=== PATIENT | female | born 1945 | race Caucasian/White ===

== ENCOUNTER 2023-02-05 09:15 | Outpatient (RCR) | payer MEDICARE, SELFPAY | END 2023-04-25 16:37 | disposition home or self-care (01) | PROVIDERS: PCP Family Medicine; Visit Provider Orthopaedic Surgery | DX: M17.12 Unilateral primary osteoarthritis, left knee (principal); Z96.651 Presence of right artificial knee joint; Z51.89 Encounter for other specified aftercare | CPT/HCPCS: 97110; 97116; 97162 ==

== ENCOUNTER 2023-11-26 11:15 | Outpatient (RCR) | payer MEDICARE, SELFPAY | END 2023-11-27 09:52 | disposition home or self-care (01) | PROVIDERS: PCP Family Medicine; Visit Provider Physical Medicine & Rehabilitation | DX: M70.61 Trochanteric bursitis, right hip (principal); M25.651 Stiffness of right hip, not elsewhere classified; R29.3 Abnormal posture; M25.551 Pain in right hip; Z51.89 Encounter for other specified aftercare | CPT/HCPCS: 97110; 97112; 97140; 97161 ==

== ENCOUNTER 2025-03-16 13:27 | Emergency (ER) | payer MEDICARE, SELFPAY ==
--- OUTSIDE RECORDS SUMMARY | 2025-03-16 13:29 | XMS_ITS | Clinical Summary ---
Author Organization [facility] Address [address] [place] [address] Care Team Providers Care Clinical Nursing Assistant Name Role Phone Pallavi Wyman MD Primary Care Provider [phone] Allergies Active Allergy Reactions Criticality Noted Date Comments Lisinopril Cough 08/29/2022 Statins 05/01/2007 Muscle pain Metoprolol GI Disturbance 08/29/2022 Microscopic colitis Sulfa Antibiotics Itching 08/29/2022 Sulfasalazine Itching 12/17/2018 Medications CLARITIN 10 MG OR TABS Take 10 mg by mouth daily as needed 3 MONTHS 1 YEAR 09/15/2007 Active MULTIVITAMIN TABS OR Take 1 tablet by mouth daily Stopped 11/19/22 before surgery 12/10/2007 Active acetaminophen (TYLENOL) 500 MG tablet Take 500-1,000 mg by mouth every 6 hours as needed for mild pain Active melatonin 3 MG tablet Take 3 mg by mouth nightly as needed for sleep Active Cranberry 500 MG TABS Take 1 tablet by mouth daily Stopped 08/28/22 before surgery Active fluticasone (FLONASE) 50 MCG/ACT nasal spray [place] 1 spray into both nostrils daily as needed Active tolterodine ER (DETROL LA) 4 MG 24 hr capsule Take 4 mg by mouth daily Active levothyroxine (SYNTHROID/LEVO THROID) 75 MCG tablet Take 75 mcg by mouth daily Active methotrexate 2.5 MG tablet Take 20 mg by mouth once a week 8 tablets weekly Stopped 11/11/22 before surgery and hold for 2 weeks after surgery. Active folic acid (FOLVITE) 1 MG tablet Take 1 mg by mouth daily Active hydroxychloroqu ine (PLAQUENIL) 200 MG tablet Take 200 mg by mouth daily Active hydrochlorothia zide (HYDRODIURIL) 12.5 MG tablet Take 12.5 mg by mouth daily Active atenolol (TENORMIN) 100 MG tablet Take 100 mg by mouth daily Active losartan (COZAAR) 50 MG tablet Take 75 mg by mouth daily Active potassium chloride ER (KLOR-CON M) 10 MEQ CR tablet Take 10 mEq by mouth daily Active aspirin (ASA) 81 MG EC tabletIndicatio ns:TIA (transient ischemic attack) Take 1 tablet (81 mg) by mouth daily 30 tablet 09/13/2022 Active Active Problems Problem Noted Date Diagnosed Date Sinus tachycardia 09/12/2022 Stroke 09/11/2022 Female stress incontinence 11/21/2007 Overview (11/21/2007): Detrol working well. Diverticulitis of colon 10/22/2005 Overview (05/12/2015): Problem list name updated by automated process. Provider to review Hyperlipidemia 10/22/2005 Overview (05/12/2015): Problem list name updated by automated process. Provider to review Allergic rhinitis 10/22/2005 Overview (05/12/2015): Problem list name updated by automated process. Provider to review Chronic rhinitis 08/28/2005 Headache 08/28/2005 Overview (05/12/2015): Problem list name updated by automated process. Provider to review Essential hypertension Overview (05/12/2015): Problem list name updated by automated process. Provider to review Hypothyroidism Overview (05/12/2015): Problem list name updated by automated process. Provider to review History of colonic polyps Overview (05/12/2015): Problem list name updated by automated process. Provider to review Immunizations Immunization Administration Dates Next Due COVID-19 MONOVALENT 12+ (Pfizer) 11/22/2020,10/11 Influenza (IIV3) PF 06/16/2007,06/28/2003 Influenza Vaccine 65+ (FLUAD) 05/08/2022, 020 Pneumo Conj 13-V (2010&after) 12/30/2014 Pneumococcal 23 valent 12/12/2009 TDAP Vaccine (Adacel) 11/21/2007 Zoster recombinant adjuvanted (Shingrix) 019,05/06/2019 Family History Medical History Relation Comments Alcohol/Drug Brother 1 Allergies Brother 1 Hypertension Brother 1 Hypertension Brother 2 Allergies Daughter C.A.D. Father BYPASS/HEART ATT ACK Diabetes Father Lipids Father Arthritis Mother Breast Cancer Mother Cancer Mother STOMACH Cardiovascular Mother Gastrointestinal Disease Mother GALLBLA DDER Gynecology Mother C.A.D. Paternal Grandfather HEART FAILU RE Cerebrovascular Disease Paternal Grandmother Allergies Sister 1 Cerebrovascular Disease Sister 1 Diabetes Sister 1 Gynecology Sister 1 Hypertension Sister 1 Anesthesia Reaction Sister 2 Breast Cancer Sister 2 Gynecology Sister 2 C.A.D. Sister 4 HEART ATTACK Cardiovascular Sister 4 Gynecology Sister 4 Hypertension Sister 4 Allergies Sister 5 Respiratory Sister 5 Allergies Son Respiratory Son Relation Status Comments Brother 1 Alive Brother 2 Alive Brother 3 Alive Brother 4 Brother 5 Alive Brother 6 Brother 7 Alive Daughter Alive Father Maternal Grandfather Maternal Grandmother Mother Paternal Grandfather Paternal Grandmother Sister 1 Alive Sister 2 Alive Sister 3 Alive Sister 4 Alive Sister 5 Alive Son Alive Social History Tobacco Use Types Packs/Day Years Used Date Smoking Tobacco: Never Smokeless Tobacco: Never Alcohol Use Standard Drinks/Week Comments Yes 0 (1 standard drink = 0.6 oz pur e alcohol) Alcoholic Drinks/day: rarely PHQ-2 Answer Date Recorded PHQ-2 Score 0 11/06/2022 Adolescent Education Answer Date Record ed Getting School Help Needed Not on file 05/26 Comments No Sex and Gender Information Value Date Recorded Sex Assigned at Female 11/03/2020 11:18 PM CDT Legal Sex Female 3:06 AM RETAIL PLANNER Gender Identity Female 11/03/2020 11:18 PM CDT Sexual Orientation Straight 11/03/2020 11 :18 PM CDT Last Filed Vital Signs Vital Sign Reading Time Taken Comments Blood Pressure 160/84 09/12/2022 4:44 PM RETAIL PLANNER Pulse 104 09/12/2022 12:00 PM RETAIL PLANNER Temperature 36.7 C (98 F) 09/12/2022 12:00 PM RETAIL PLANNER Respiratory Rate 18 09/12/2022 12:00 PM RETAIL PLANNER Oxygen Saturation 96% 09/12/2022 12:00 PM RETAIL PLANNER Inhaled Oxygen Concentration - - Weight 53.7 kg (118 lb 6.4 oz) 09/12/2022 2:40 A M RETAIL PLANNER Height 154.9 cm (5' 1) 09/11/2022 2:00 PM RETAIL PLANNER Body Mass Index 22.37 09/11/2022 2:00 PM RETAIL PLANNER Plan of Treatment Health Maintenance Due Date Last Done Comments ANNUAL REVIEW OF HM ORDERS 1945 FALL RISK ASSESSMENT 2009 RSV VACCINE (1 - 1-dose 75+ series) 2019 DEXA 10/27/2019 10/26/2004 MEDICARE ANNUAL WELLNESS VISIT 03/22/2023 03/22/2022, 03/02/2021, 11/21/2007, Additional history exists LIPID 09/11/2023 09/11/2022, 04/0 08/2007, 07/22/2007, Additional history exists TSH W/FREE T4 REFLEX 09/11/2023 09/11/2022, 01/09/2008, 11/11/2007, Additional history exists BMP 09/12/2023 09/12/2022, 08/14, 09/11/2022, Additional history exists COVID-19 VACCINE ( season) 2024 07/12/2022, 12/13/2021, 06/02/2021, Additional history exists PHQ-2 (once per calendar year) 2024 11/06/2022 INFLUENZA VACCINE (#1) 2025 , 06/02/2021, 05/05/2020, Additional history exists DIABETES SCREENING 09/12/2025 09/12/2022, 0 09/12/2022, 09/11/2022, Additional history exists ADVANCE CARE PLANNING 09/18/2027 09/18/2022 DTAP/TDAP/TD VACCINE (6 - Td or Tdap) 02/06/2028 02/05/2018, 02/05/2018, 11/21/2007, Additional history exists COLONOSCOPY Discontinued 12/10/2007, 11/10, 07/27/2002 COLORECTAL CANCER SCREENING Discontinued PNEUMOCOCCAL VACCINE 50+ YEARS Completed 12/30/2014, 12/12/2009 ZOSTER VACCINE Completed 07/15/2019, 05/06/2019 MAMMO SCREENING Discontinued 10/12/2022, 08/13, 06/17/2007, Additional history exists CT COLONOGRAPHY Discontinued FIT Discontinued FLEX SIG Discontinued HPV VACCINE (No Doses Required) Completed MENINGITIS VACCINE Aged Out No longer eligible based on patient's age to complete this topic sDNA (Cologuard) Discontinued Medical Devices Implanted Type Area Diesel Pile Hammer Operator Device Identifier Shelf Expiration Date Model / Serial / Lot Bone Cement Radiopaque Simplex P Speedset 6192-1-001 Implanted:Qty : 1 on 10/11/2020 Cement, Bone Left: Knee [employer] 12/09/2020 6192-1-001 / / [id number] Attune Fb Tib Base Sz 4 Adair Implanted:Qty : 1 on 10/11/2020 Total Joint Componen t/Insert Left: Knee [employer] 07/11/2030 1506-70-004 / / [id number] Imp Insert Jj Attune Cr Fx Br Sys Sz5 5mm [id number] Implanted:Qty : 1 on 10/11/2020 Total Joint Componen t/Insert Left: Knee [employer] [id number] 07/11/2025 [id number] / / [id number] Imp Comp Fem Jj Attune Cr Lt Nrw [employer]air Sz5 [id number] Implanted:Qty : 1 on 10/11/2020 Total Joint Componen t/Insert Left: Knee [employer] [id number] 06/11/2030 [id number] / / [id number] Imp Patella Jj Attune Dome 38mm [id number] Implanted:Qty : 1 on 10/11/2020 Total Joint Componen t/Insert Left: Knee [employer] [id number] 07/11/2025 [id number] / / [id number] Procedures Procedure Name Priority Date/Time Associated Diagnosis Comments GLUCOSE BY METER Routine 09/12/2022 12:0 8 PM RETAIL PLANNER BASIC METABOLIC PANEL Routine 09/12/2022 5:06 AM RETAIL PLANNER TSH STAT Add-on 09/11/2022 1:10 PM RETAIL PLANNER LIPID PROFILE STAT Add-on 09/11/2022 1:10 PM RETAIL PLANNER COLONOSCOPY Routine 12/10/2007 8:40 AM CDT HC MAMMOGRAM, SCREENING BILATERAL Routine 06/17/2007 12:16 PM RETAIL PLANNER C DEXA, BONE DENSITY, AXIAL SKEL Routine 10/26/2004 1:25 PM RETAIL PLANNER from Last 3 Months or Most Recently Relevant to Health Maintenance Results * (ABNORMAL) Glucose by meter (09/12/2022 12:08 PM RETAIL PLANNER) GLUCOSE BY METER POCT 121(H) 70 - 99 mg/dL 09/12/2022 12:16 PM RETAIL PLANNER [facility] POCT RESULTS Blood, Capillary BLOOD SPECIMEN / Unknown 09/12/2022 12:08 PM RETAIL PLANNER 09/12/2022 12:16 PM RETAIL PLANNER us Messi Ayon MD [facility] POCT Final Resul t [facility] POCT RESULTS [address] [place] [address] * Basic metabolic panel (09/12/2022 5:06 AM RETAIL PLANNER) Sodium 136 136 - 145 mmol/L 09/12/2022 5:40 AM [facility] Potassium 3.8 3.5 - 5.0 mmol/L 09/12/2022 5:40 AM [facility] Chloride 99 98 - 107 mmol/L 09/12/2022 5:40 AM [facility] Carbon Dioxide (CO2) 27 22 - 31 mmol/L 09/12/2022 5:40 AM [facility] Anion Gap 10 5 - 18 mmol/L 09/12/2022 5:40 AM [facility] Urea Nitrogen 9 8 - 28 mg/dL 09/12/2022 5:40 AM [facility] Creatinine 0.63 0.60 - 1.10 mg/dL 09/12/2022 5:40 AM [facility] Calcium 9.6 8.5 - 10.5 mg/dL 09/12/2022 5:40 AM [facility] Glucose 85 70 - 125 mg/dL 09/12/2022 5:40 AM [facility] GFR Estimate 90 >60 mL/min/1.7 3m2 09/12/2022 5:40 AM [facility] Comment:eGFR calculated usla g 2020 CKD-EPI equation. Blood BLOOD SPECIMEN / Unknown Venipuncture / Unknown 09/12/2022 5:06 AM RETAIL PLANNER 09/12/2022 5:19 AM RETAIL PLANNER Messi Ayon MD LAB - BLOOD ORDERABLES Final Result [facility] [address] [place], [place] [address] [address], [facility] [phone] * TSH (09/11/2022 1:10 PM RETAIL PLANNER) Pathologist [facility] TSH 2.27 0.30 - 5.00 uIU/mL 09/11/2022 2:33 PM [facility] Blood STRUCTURE OF RIGHT UPPER LIMB / Unknown Venipuncture / Unknown 09/11/2022 1:10 PM RETAIL PLANNER 09/11/2022 1:18 PM RETAIL PLANNER Messi Ayon MD LAB - BLOOD ORDERABLES Final Result [facility] [place] [address], [facility] [phone] * (ABNORMAL) Lipid panel reflex to direct LDL: Non-fasting (09/11/2022 1:10 PM RETAIL PLANNER) Cholesterol 163 <=199 mg/dL 09/11/2022 2:22 PM RETAIL PLANNER [facility] Triglycerides 102 <=149 mg/dL 09/11/2022 2:22 PM [facility] Direct Measure HDL 44(L) >=50 mg/dL 2022 2:22 PM [facility] Comment: HDL Cholesterol Reference Range: 0-2 years: No reference ranges established for patients under 2 years old at [facility] for lipid analytes. 2-8 years: Greater than 45 mg/dL 18 years and older: Female: Greater than or equal to 50 mg/dL Male: Greater than or equal to 40 mg/dL LDL Cholesterol Calculated 99 <=129 mg/dL 09/11/2022 2:22 PM [facility] Blood STRUCTURE OF RIGHT UPPER LIMB / Unknown Venipuncture / Unknown 09/11/2022 1:10 PM RETAIL PLANNER 09/11/2022 1:18 PM [facility] us Messi Ayon MD LAB - BLOOD ORDERABLES Final Result [facility] [address] [place] [address], [facility] [phone] * COLONOSCOPY (12/10/2007 8:40 AM CDT) COLONOSCOPY Patient Name: Julianna Boothe Gender: F Procedure Date: 12/10/2007 8:40 AM Date of : 1945 Age: 62 Admit Type: Outpatient Attending MD: Jeremy Cotto MD Procedure: Colonoscopy Indications: Personal history of colonic polyps Providers: Jeremy Cotto MD, Flor Andrews RN Referring MD: Ryland Kaur MD Medicines: Atropine IV 0.4 mgs, Fentanyl IV 100 mcgs, Versed IV 4 mgs Complications: No immediate complications Procedure: - Prior to the procedure, a History and Physical was performed, and patient medication allergies were reviewed. The patient is competent. The risks and benefits of the procedure and the sedation options and risks were discussed with the patient. All questions were answered and informed consent was obtained. Patient identification and proposed procedure were verified by the physician in the pre-procedure area. Mental Status Examination: alert and oriented. Airway Examination: normal oropharyngeal airway and neck mobility. Respiratory Examination: clear to auscultation. CV Examination: normal. ASA Grade Assessment: I - A normal, healthy patient. After reviewing the risks and benefits, the patient was deemed in satisfactory condition to undergo the procedure. The anesthesia plan was to use minimal sedation / analgesia (anxiolysis). Immediately prior to administration of medications, the patient was re-assessed for adequacy to receive sedatives. The heart rate, respiratory rate, oxygen saturations, blood pressure, adequacy of pulmonary ventilation, and response to care were monitored throughout the procedure. The physical status of the patient was re-assessed after the procedure. After obtaining informed consent, the colonoscope was passed under direct vision. Throughout the procedure, the patient's blood pressure, pulse, and oxygen saturations were monitored continuously. The Colonoscope was introduced through the anus and advanced to the ileocecal valve. The colonoscopy was performed without difficulty. The patient tolerated the procedure well. The quality of the prep was good. The prep was adequate to identify polyps. Findings: Multiple small and large-mouthed diverticula were found in the sigmoid colon. The exam was otherwise without abnormality. Impression: - Diverticulosis sigmoid colon. - The examination was otherwise normal. Recommendation: - Repeat colonoscopy in 5 years for surveillance. - Return to primary care physician PRN. Signed electronically by Jeremy Cotto M.D. Jeremy Cotto MD Signed Date: 12/10/2007 9:00 AM Number of Addenda: 0 Note initiated on 12/10/2007 8:40 AM RADIOLOGY RESULTS COLONOSCOPY RADIOLOG Y RESULTS 12/10/2007 8:40 AM CDT Ryland Kaur MD PROCEDURES Final Result RADIOLOGY RESULTS * MAMMOGRAM, SCREENING (06/17/2007 12:16 PM RETAIL PLANNER) Anatomical Region Laterality Modality Other 06/17/2007 12:1 6 PM RETAIL PLANNER Impressions 06/19/2007 9:24 AM RETAIL PLANNER EXAM: BILATERAL SCREENING MAMMOGRAPHY HISTORY/COMPARISON: routine, prev at [facility], 01/03/05, a/v 01/16/05, 06-14-06. BREAST PARENCHYMA: Heterogeneously dense. FINDINGS: Negative. . IMPRESSION: Category 1. Negative. An ACR letter will be sent to this patient with regards to these results. Ryland Kaur MD SPECIAL IMAGING STUDIE S Edited * DEXA, BONE DENSITY, AXIAL SKEL (10/26/2004 1:25 PM RETAIL PLANNER) Radiology Result BONE MINERAL DENSITY DETERMINATION: INDICATION: Postmenopausal. TECHNIQUE: The study was performed using DEXA in the AP lumbar spine and AP femoral neck. A summation report is made for L1 through 4 in the spine, and separate reports are made for the left and right hips. NEW EQUIPMENT FOR THIS EXAMINATION IS NOW IN USE, AND FULLY RELIABLE COMPARISONS CANNOT BE MADE TO PREVIOUS BONE DENSITY DETERMINATIONS MADE BEFORE JANUARY 04, 2004. RADIOGRAPHIC CORRELATION: Prior bone densitometry study from [facility]. It is dated March 14, 2000. FINDINGS: Using DEXA, the results are reported according to T score. The T score is the standard deviation from the peak bone mass in a normal young patient. A T score of 0 to -1.0 is normal. A T score of -1.0 to -2.5 correlates with osteopenia. T score of less the -2.5 correlates with osteoporosis according to World Health Organization standards. The T-score of the lumbar spine on today's study in the region of L2-L4 is 0 which correlates with normal bone mineral density. The patient had a T-score in the normal bone mineral density range on the prior study at 0.6. The T-score of the left femur on today's study is -0.1 which correlates with normal bone mineral density. The patient had a T-score in the normal bone mineral density range on the prior study at 1.3. RADIOLOGY RESULTS Anatomical Region Laterality Modality Other 10/26/2004 1:25 PM RETAIL PLANNER Ryland Kaur MD SPECIAL IMAGING STUDIE S Final Result from Last 3 Months or Most Recently Relevant to Health Maintenance Insurance [employer] MEDICARE ADVANTAGE Advance Directives For more information, please contact: [phone] Documents on File Type Date Recorded Patient Story Editor Expl anation Advance Directives and Living Will 09/18/2022 Health Care Directiv e 12/05/2011 * Full Code (Latest Code Status on File) Date Activated Date Inactivated Comments 09/11/2022 1:49 PM 09/12/2022 7:57 PM All basic and advanced life-sustaining interventions are performed as appropriate Question Answer Comments Code status determined by: Discussion with patie nt/ legal decision maker Healthcare Agents on File Name Relationship Healthcare Agent [facility] Communication Musa Boothe Son Co-Primary Health Care Ageivan rhodes Kenisha Brown Daughter Co-Primary Health Care Agent Care Teams Clinical Nursing Assistant Relationship Specialty Start Date End Date Pallavi Wyman MD PCP - General Family Medicine 10/07/20
--- OUTSIDE RECORDS SUMMARY | 2025-03-16 13:29 | XMS_ITS | Encounter Summary ---
Author Organization [facility] Address [address] [place] [address] Care Team Providers Care Photoresist Contact Printer Name Role Phone Ryland Kaur MD Primary Care Provider Pallavi Wyman MD Primary Care Provider [phone] Pallavi Wyman MD Primary Care Provider [phone] An Villafuerte TOOL MARKER INDUSTRIAL PROPERTY APPRAISER Unavailable An Villafuerte TOOL MARKER INDUSTRIAL PROPERTY APPRAISER Unavailable [phone] An Villafuerte TOOL MARKER INDUSTRIAL PROPERTY APPRAISER Unavailable [phone] An Villafuerte TOOL MARKER INDUSTRIAL PROPERTY APPRAISER Unavailable [phone] Encounter Details Date Type Department Care Team (Late st Contact Info) Description 12/09/2006 MyC Medical Advice [facility] Ryland Kaur MD XXX NO LONGERS SEEING PTS XXX [address] [place], [place] [id number] Social History Tobacco Use Types Packs/Day Years Used Date Smoking Tobacco: Never Alcohol Use Standard Drinks/Week Comments Yes 0 (1 standard drink = 0.6 oz pur e alcohol) occ Comments No Sex and Gender Information Value Date Recorded Sex Assigned at Female 11/03/2020 11:18 PM CDT Legal Sex Female 3:06 AM TECHNICAL MAINTENANCE SPECIALIST Gender Identity Female 11/03/2020 11:18 PM CDT Sexual Orientation Straight 11/03/2020 11 :18 PM CDT documented as of this encounter Miscellaneous Notes * Telephone Encounter - Pooja Bacon - 12/09/2006 9:[address] Kaur, please see MyChart note. Pooja Bacon RNC documented in this encounter Plan of Treatment Not on file documented as of this encounter Visit Diagnoses Not on filedocumented in this encounter Care Teams Photoresist Contact Printer Relationship Specialty Start Date End Date Ryland Kaur MD XXX NO LONGERS SEEING PTS XXX [address] [place] [address] PCP - General 05/05/04 10/04/20 Pallavi Wyman MD XXX NO LONGERS SEEING PTS XXX [address] [place] [address] PCP - General Family Medicine 10/07/20 Pallavi Wyman MD XXX NO LONGERS SEEING PTS XXX [address] [place] [address] PCP - General 10/05/20 10/06/20 An Villafuerte APRN INDUSTRIAL PROPERTY APPRAISER [facility] [address] [place] [address] Assigned Surgical Provider 04/27/23 08/23/23 An Villafuerte APRN INDUSTRIAL PROPERTY [facility] [address] [place] [address] Assigned Neuroscience Provider 08/24/23 10/24/23 An Villafuerte APRN INDUSTRIAL PROPERTY [facility] [address] [place] [address] Assigned Surgical Provider 10/25/23 12/02/23 An Villafuerte APRN INDUSTRIAL PROPERTY [facility] [address] [place] [address] Assigned Behavioral Health Provider 12/03/23 06/02/24 documented as of this encounter
--- OUTSIDE RECORDS SUMMARY | 2025-03-16 13:29 | XMS_ITS | Clinical Summary ---
Author Organization [employer] [facility] Address [address] [place] [id number] Care Team Providers Care Propellant Assembler Name Role Phone Ju Cohen Andres Unavailable [phone] Annemarie Ward MD Unavailable [phone] Venice Ch MD Primary Care Provi keron Emily Hernandez RN Unavailable [phone] Spencer Bolden MD Unavailable [phone] Allergies Active Allergy Reactions Criticality Noted Date Comments Lisinopril Cough 04/21/2020 Metoprolol GI Upset 10/08/2017 Microscopic colitis Sulfasalazine Itching 12/17/2018 Medications acetaminophen (TYLENOL EXTRA STRGTH) 500 mg tablet Take 1 tablet by mouth every 6 hours if needed. Max acetaminophen dose: 4000mg in 24 hrs. 0 10/09/19 14 Active multivitamin (MVI) tablet Take 1 tablet by mouth once daily. 0 12/24/19 14 Active Cranberry 500 mg cap Take 1 capsule by mouth once daily. 0 03/07/20 16 Active loratadine (CLARITIN) 10 mg tablet Take 10 mg by mouth once daily. As needed 0 09/06/19 17 Active fluticasone (50 mcg per actuation) nasal solution (FLONASE) Uses as needed Activ e aspirin (ECOTRIN) 81 mg enteric coated tablet Take 81 mg by mouth. 09/13/19 23 Active losartan (COZAAR) 100 mg tabletIndicatio ns:Hypertension Take 1 Tablet (100 mg) by mouth once daily. 90 Tablet 3 05/19/20 24 Active levothyroxine (SYNTHROID) 75 mcg tabletIndicatio ns:Hypothyroidi sm, unspecified type Take 1 Tablet (75 mcg) by mouth once daily. BEST IF TAKEN ON AN EMPTY STOMACH 90 Tablet 3 06/01/20 24 Active potassium chloride (K-TAB) 10 mEq extended-releas e tabletIndicatio ns:Low serum potassium TAKE 1 TABLET (10 MEQ) BY MOUTH ONCE DAILY WITH A MEAL. 90 Tablet 2 08/17/19 25 Active folic acid 1 mg tabletIndicatio ns:Seropositive rheumatoid arthritis (HC) Take 1 Tablet (1 mg) by mouth once daily. 90 Tablet 3 08/13/19 25 Active hydroxychloroqu ine 300 mg tabletIndicatio ns:Rheumatoid arthritis of multiple sites with negative rheumatoid factor (HC) Take 1 Tablet (300 mg) by mouth once daily. 90 Tablet 1 11/24/19 25 Active tolterodine 4 mg Extended-Releas e capsuleIndicati ons:Urinary urgency Take 1 Capsule (4 mg) by mouth once daily. 90 Capsule 1 12/21/19 25 Active atenoloL 100 mg tabletIndicatio ns:Hypertension TAKE 1 TABLET BY MOUTH EVERY DAY 90 Tablet 2 01/06/20 25 Active amLODIPine 5 mg tabletIndicatio ns:Hypertension TAKE 1 TABLET BY MOUTH EVERY DAY 90 Tablet 2 01/06/20 25 Active methotrexate 2.5 mg tabletIndicatio ns:Seropositive rheumatoid arthritis (HC) TAKE 9 TABLETS BY MOUTH ONE TIME PER WEEK 144 Tablet 02/11/20 25 Active losartan (COZAAR) 50 mg tabletIndicatio ns:Hypertension Take 1.5 Tablets (75 mg) by mouth once daily. 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 Provider to review History of TIA (transient ischemic attack) 09/1111/16/2022 Overview (2023): 09.11.2022 at [place]. On Aspirin. Primary osteoarthritis of right knee 05/23/2022 Overview (05/31/2022): May 2022: Right knee Aspirated 30 ml of blood-tinged joint effusion and injected with cortisone. 70% improvement. Osteopenia of multiple sites 03/22/2021 Overview (03/22/2021): DEXA 2020 osteopenia with increased FRAX score - recommend she consider medication Trigger finger, left middle finger 03/23/2020 Overview (01/03/2021): Mar 2020: left middle trigger finger injected. Very good pain/triggering improvement until October 2020. December 2020: Repeat cortisone injection to left middle trigger finger. Rheumatoid arthritis involvi ng multiple sites with positive rheumatoid factor 01/05/2016 Atrophic vaginitis 12/23/2013 Microscopic colitis 06/29/2013 Overview (06/29/2013): Colonoscopy 06/2013 lymphocytic colitis, no follow up needed Sensorineural hearing loss, bilateral 11/18/2012 Hypertension 12/11/2010 Unspecified hypothyroidism 12/11/2010 Mixed hyperlipidemia 12/11/2010 Female stress incontinence 11/21/200711/16 Overview (11/16/2022): Detrol working well. Allergic rhinitis 10/22/2005 11/16/2022 Overview (11/16/2022): Problem list name updated by automated process. Provider to review Resolved Problems Problem Noted Date Diagnosed Date Resolved Date Unspecified tinnitus 11/18/2012 023 Encounters Date Type Department Care Team Description 02/10/2025 Refill [facility] [address] [address] Spencer Bolden MD Refill Request (Methotrexate) 02/05/2025 10:30 AM CDT Office Visit [facility] [address] [place] [address] David Henderson, AuD Hearing Aid 02/05/2025 Travel 01/31/2025 Travel 01/22/2025 9:30 AM CDT Office Visit [facility] [address] [place] [address] David Henderson, AuD Hearing Aid (Fitting) 01/22/2025 Travel 01/17/2025 Travel 01/14/2025 10:00 AM CDT Office Visit [facility] [address] [place] [address] David Henderson, AuD Hearing Aid 01/13/2025 Travel 01/11/2025 Telephone [facility] [address] [place] [address] David Henderson, AuD 01/09/2025 Travel 01/04/[address] [phone] Venice Ch MD Refill Request (Amlodipine) 01/02/[address] [phone] Venice Ch MD Refill Request (Atenolol) 12/18/[address] [phone] Venice Ch MD Refill Request (Tolterodine tart ER 4 mg) 12/17/2024 3:00 PM CDT Office Visit [address] [phone] Ubaldo Trujillo, KAYLEE Ear Problem (Patient states she feels like both ears are muffled/plugged. Seen previously by audiology, found deep ear wax in left ear. Patient has tried ear drops and at home ear flush, didn't help much.) 12/17/2024 Travel 12/14/2024 11:00 AM CDT Office Visit [facility] [address] [address] Spencer Bolden MD Follow Up 12/14/2024 Travel from Last 3 Months Immunizations Immunization Administration Dates Next Due AMB INFLUENZA IIV3 (AGE 65+ YRS) PF (Flu Clinic Only) 05/22/2019,06/24/2018,05/15/2017 AMB Influenza, IIV3 (Age >=3 years)(Flu Clinic Only) 2011,06/01/2010 Amb Influenza, Inact (High-d ose) (Flu Clinic Only) 04/27/2016,06/09/2015 COVID-19 VACCINE COMIRNATY (PFIZER-BIONTECH 30MCG/0.3ML) 12YO+ PFS 05/07/2024 COVID-19 VACCINE SPIKEVAX (M ODERNA 50MCG/0.5ML) 12YO+ PFS 05/06/2023 COVID-19 vaccine (Moderna 100mcg/0.5mL) PF, MDV 12/13/2021,06/02/2021 COVID-19 vaccine ([employer]Bio NTech 30mcg/0.3mL) 12YO+ BIVALENT PF, MDV 07/12/2022 COVID-19 vaccine ([employer] NTech 30mcg/0.3mL) PF, MDV 07/12/2022,11/22/2020,11/01/2020 Influenza Virus, Unspecified 05/06/2023, 04/27/2016,06/09/2015,07/06 Influenza, High-dose Inactivated 020,05/22/2019,06/24/2018,05/15,04/27/2016,06/09/2015,05/19/2014 Influenza, High-dose Quadriv alent Inactivated 06/02/2021 Influenza, IIV3 (Age 6-35 mos) 2011 Influenza, IIV3 (Age >=3 years) 07/06/20 13,06/23/2012,06/01/2010,07/06 Influenza, Inactivated AIIV4 (Age 65+ Years) Preserv Free 05/06/2023,05/08/2022,05/05/2020 Influenza, Inactivated IIV3 (Age 65+ Years) Preserv Free 05/07/2024,05/15/2017 Pneumococcal Poly,23-Valent (Pneumovax) 12/12/2009 Pneumococcal conj 13-Valent (Prevnar 13) 12/30/2014 RSV, Recombinant ADJ Reconst ituted (Arexvy 120MCG/0.5mL) 07/15/2023 TD, UNSPECIFIED 02/05/2018,11/21/2007,12/27/1997 Td (Age >=7 Years) 02/05/2018,11/21/2007, 998 Tdap 11/21/2007 Zoster (Shingrix-RZV, recombinant) 07/15/2019, Family History Medical History Relation Name Comments Other Father Gout Arthritis Mother Cancer-breast Mother Diagnosed 50 Other Other no known family hx of anesthesia rxn, bleeding disorders, or blood clots Arthritis Sister 1 Jenna RA Cancer-breast Sister 1 Jenna Diagnosed 56 Arthritis Sister 2 Margaux Cancer-breast Sister 2 Margaux diag 2021 Cancer-breast Sister 3 Emily diag 2019 Heart Disease Sister 3 Emily Cancer-ovarian No Family History Relation Name Status Comments Father Mother Other Sister 1 Jenna Alive Sister 2 Margaux Alive Sister 3 Emily Alive Social History Tobacco Use Types Packs/Day Years Used Date Smoking Tobacco: Never Passive Smoke Exposure: Never Smokeless Tobacco: Never Tobacco Cessation:Counseling Given: Not Answered Alcohol Use Standard Drinks/Week Comments Yes 0 (1 standard drink = 0.6 oz pur e alcohol) 3-4 per year PHQ-2 Answer Date Recorded PHQ-2 TOTAL SCORE 0 05/19/2024 Social Connections Answer Date Recorded Do you often feel lonely or isolated from those around you? 0 12/04/2024 Financial Resource Strain Answer Date R ecorded Difficulty of Paying Living Expenses 3 12/04/2024 Difficulty of Paying Living Expenses Not on file 12/04/2024 Food Insecurity Answer Date Recorded Do you worry your food will run out before you are able to buy more? 1 12/04/2024 Transportation Needs Answer Date Record ed Does lack of transportation keep you from medica l appointments? 1 12/04/2024 Does lack of transportation keep you from work, meetings or getting things that you need? 1 12/04/2024 Housing Stability Answer Date Recorded What is your housing situation today? 1 12/04/2024 Utilities Answer Date Recorded Do you have trouble paying f or utilities (for example, heat, electricity, water, phone)? 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 Not on file Not on file Not on f ile Obstetrics History Para Term AB IAB SAB Ectopic Multiple Livin g Live Births 4 2 2 Date Outcome GA Total Labor Labor/2nd/3rd Weight Sex Type Anes PTL Lynn A1 A5 Name Clin Term Term Last Filed Vital Signs Vital Sign Reading Time Taken Comments Blood Pressure 118/62 12/17/2024 3:06 PM CDT Pulse 80 12/17/2024 3:06 PM CDT Temperature 36.7 C (98 F) 05/31/2020 8:52 AM CDT Respiratory Rate 16 10/15/2023 10:31 AM 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 Oxygen Saturation 98% 12/17/2024 3:06 PM CDT Inhaled Oxygen Concentration - - Weight 55.9 kg (123 lb 4.8 oz) 12/17/2024 3:06 P M CDT Height 154.3 cm (5' 0.75) 12/14/2024 10:59 AM C DT Body Mass Index 23.49 12/14/2024 10:59 AM CDT Plan of Treatment Upcoming Encounters Date Type Department Care Team (Late st Contact Info) Description 04/06/2025 9:00 AM CDT Orders Only [facility] [address] [place] [address] [place], [place] 04/20/2025 10:30 AM CDT Office Visit [facility] [address] [address] [place] [address] [place], [place] [id number] Health Maintenance Due Date Last Done Comments COVID-19 vaccine series (8 - Mixed Product risk season) 2024 05/07/2024, 05/06/2023, 07/12/2022, Additional history exists Influenza Vaccine (#1) 2025 , 05/06/2023, 05/06/2023, Additional history exists Medicare Wellness for age 65+ 05/20/2025 05/19/2024, 03/26/2023, 03/22/2022, Additional history exists Depression screening for age 12+ 05/21/2025 05/21/2024, 05/19/2024, 03/26/2023, Additional history exists BMI (ht and wt on same day) for age 18+ 12/14/2025 12/14/2024, 09/21/2024, 08/13/2024, Additional history exists Tetanus booster 02/06/2028 02/05/2018, 01/11, 11/21/2007, Additional history exists Pneumococcal series for age 50+ Completed 12/30/2014, 12/12/2009 Zoster (shingles) series for age 50+ Completed 07/15/2019, 05/06/2019 DEXA/DXA scan for age 65+ Completed 03/15/2021, 01/2010 RSV vaccine for adults or Completed 07/15/2023 Hepatitis B series for 19+ Aged Out N o longer eligible based on patient's age to complete this topic Procedures Procedure Name Priority Date/Time Associated Diagnosis Comments XR DXA BONE DENSITY 2 SITES AXIAL Routine 03/15/2021 8:48 AM CDT Menopause from Last 3 Months or Most Recently Relevant to Health Maintenance Results * (ABNORMAL) XR DXA BONE DENSITY 2 SITES AXIAL (03/15/2021 8:48 AM CDT) Anatomical Region Laterality Modality Spine, HIPS, HIPL, HIPR Other Impressions 03/21/2021 1:52 PM CDT Osteopenia. RECOMMENDATIONS: The National Osteoporosis Foundation recommends pharmacologic treatment for patients with T-scores of -2.5 or less, patients with prior history of fragility fractures, or patients with 10-year probability of greater than 3% at hips or greater than 20% of suffering major osteoporotic fractures. Recommend continued optimization of calcium and vitamin D intake through dietary means and/or supplementation and regular exercise. Consider pharmacologic therapy for osteopenia with increased fracture risk. Follow-up bone density reading in 2 years if therapy initiated to assess therapeutic efficacy. Lynette Darby PA-C [facility] 03/21/2021 Narrative 03/21/2021 1:52 PM CDT XR DXA Bone Mineral Density (BMD) EXAM LOCATION: [address] [address] PATIENT NAME: Julianna Boothe DATE OF : 1945 EXAM DATE: 03/15/2021 REQUESTING PROVIDER: Pallavi Wyman MD GENDER AT : female HEIGHT: 5' 1.1 (03/02/2021) WEIGHT: 123 lb 6.4 oz (03/02/2021) MENOPAUSAL STATUS: Postmenopausal RACE/ETHNICITY: White RISK FACTORS: Weight < 127 lbs. and White Race CURRENT MEDICATION FOR BONE LOSS: NONE INDICATION: Screening for osteoporosis COMPARISON DATE(S): 2009 DXA scans are compared to prior studies for a patient only when the two (or more) studies were performed on the same scanner. It is not possible to compare data generated on one scanner to data from another because there are not standards in DXA equipment. This applies even if the two scanners are made by the same bottom polisher. PROCEDURE: Dual-energy x-ray absorptiometry performed with routine technique. Reporting is completed in the form of a T-score. The T-score represents the standard deviation from peak bone mass based on young healthy adult. A Z-score is used for diagnosis in premenopausal women, and for men under the age of 50. FINDINGS: RESULT LUMBAR SPINE L1 - L2 BMD: 1.034 g/cm2 T-Score: - 1.2 Z-Score: + 0.9 Comparison to most recent scan in 2009: Decrease 8.6%. RESULT FEMORAL NECK Left Total Femoral Neck BMD: 0.861 g/cm2 T-Score: - 1.3 Z-Score: + 0.9 RESULT TOTAL HIP Bilateral Total Hip BMD: 0.807 g/cm2 T-Score: - 1.6 Z-Score: + 0.5 Comparison to most recent scan in 2009: Decrease 17.1%. WHO criteria: Normal: T-score at or above -1 SD Osteopenia: T-score between -1.1 and -2.4 SD Osteoporosis: T-score at or below -2.5 SD FRAX RISK CALCULATION (USED FOR OSTEOPENIA ONLY): 10-year probability of major osteoporotic fracture: 13.9%. 10-year probability of hip fracture: 3.0%. 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
--- OUTSIDE RECORDS SUMMARY | 2025-03-16 13:29 | XMS_ITS | Clinical Summary ---
Author Organization [facility] Address [address] [place] [address] Care Team Providers Care Durable Medical Equipment Technician Name Role Phone None Reported, Pcp Primary Care Provider Unavail able Source Comments Patient records contain information from all sites at [facility]. For routine questions regarding patient records, call [phone] during business hours, M-F 8:00 AM - 5:00 PM Central Time. Record requests for emergency care only can be directed to [phone] at any time.[facility] Allergies Active Allergy Reactions Criticality Noted Date Comments Lisinopril Cough 04/21/2020 Metoprolol GI intolerance 10/08/2017 Microscopic colitis Nsaids (Non-Steroidal Anti-Inflammatory Drug) Other (see comments) 01/01/2023 Hx microscopic colitis Sulfa (Sulfonamide Antibiotics) Itching 08/29/2022 Sulfasalazine Itching 12/17/2018 Medications acetaminophen (TYLENOL) 500 mg tablet Take 500 mg by mouth. 4 Active cranberry 500 mg capsule Take 500 mg by mouth. 6 Active fluticasone propionate (FLONASE) 50 mcg/actuation nasal spray Active folic acid 1 mg tablet Take 1 mg by mouth. 9 Active levothyroxine (SYNTHROID, LEVOTHROID) 75 mcg tablet Take 75 mcg by mouth. 9 Active lisinopril-hydr oCHLOROthiazide (PRINZIDE,ZESTO RETIC) 10-12.5 mg per tablet Take 1 tablet by mouth. 0 Active melatonin 3 mg tablet Take 3 mg by mouth. 4 Active methotrexate 2.5 mg tablet TAKE 8 TABLETS BY MOUTH ONCE A WEEK 9 Active multivitamin tablet Take 1 tablet by mouth. 4 Active tolterodine (DETROL LA) 4 mg 24 hr capsule Take 4 mg by mouth. 9 Active atenoloL (TENORMIN) 100 mg tablet Take 100 mg by mouth daily. 3 Active potassium chloride (KLORCON/K-TAB) 10 mEq ER tablet Take 10 mEq by mouth daily with breakfast. 3 Active losartan-hydroC HLOROthiazide (HYZAAR) 100-25 mg per tablet Take 1 tablet by mouth daily. [address] Active aspirin [address] tablet Take 81 mg by mouth daily. 3 Active amoxicillin (AMOXIL) 500 mg capsule Take 500 mg by mouth as directed. For dental procedures 3 Active adalimumab, citrate free, (Humira,CF, Pen) 40 mg/0.4 mL injection Inject 40 mg under the skin over 336 hr. 5 Active amLODIPine (Norvasc) 5 mg tablet Take 1 tablet by mouth daily. 5 Active losartan (Cozaar) 100 mg tablet Take 100 mg by mouth daily. Active hydroxychloroqu ine 300 mg tablet Take 1 tablet by mouth daily. 5 Active Active Problems No known active problems Encounters Date Type Department Care Team Description 12/24/2024 2:00 PM CDT Procedure visit Department of Physical Medicine and Rehabilitation in [place], [place] [address] [place] [address] Rom Correa M.D. Pain Hip Right from Last 3 Months Family History Medical History Relation Name Comments Drug abuse Brother Jeremiah Coronary artery disease Father Wival Dorothea Hypertension Father Wival Dorothea Breast cancer Mother Nicolette Stroke Paternal Grandmother [place] Dorothea Breast cancer Sister 1 Jenna Breast cancer Sister 2 Margaux Rheum arthritis Sister 2 Margaux Breast cancer Sister 3 Emily Melanoma Sister 3 Emily Relation Name Status Comments Brother Jeremiah Father Wival Dorothea Mother Nicolette Paternal Grandmother [place] Dorothea Sister 1 Jenna Sister 2 Margaux Sister 3 Emily Social History Tobacco Use Types Packs/Day Years Used Date Smoking Tobacco: Never Smokeless Tobacco: Never Comments:none Alcohol Use Standard Drinks/Week Comments Not Currently 0 (1 standard drink = 0.6 oz pur e alcohol) seldom [facility] Utilities Answer Date Recorded In the past 12 months has th e electric, gas, oil, or water company threatened to shut off services in your home? No 11/24/2024 Hunger Vital Sign Answer Date Recorded Within the past 12 months, y ou worried that your food would run out before you got the money to buy more. Never true 11/25/19 25 Within the past 12 months, t he food you bought just didn't last and you didn't have money to get more. Never true 11/24/2024 PRAPARE - Transportation Answer Date Re corded In the past 12 months, has l ack of transportation kept you from medical appointments or from getting medications? No 11/10 In the past 12 months, has l ack of transportation kept you from meetings, work, or from getting things needed for daily living? No 11/24/2024 Housing Stability Answer Date Recorded What is your living situation today? I have a [facility] place to live 11/24/2024 Education Answer Date Recorded What is the highest level of school you have completed or the highest degree you have received? Associate degree: academic program 03/10/2020 Comments Unknown Sex and Gender Information Value Date Recorded Sex Assigned at Female 08/13/2023 4:00 PM EARLY CHILDHOOD ASSISTANT Legal Sex Female 10:33 AM CDT Gender Identity Female 08/13/2023 4:00 PM EARLY CHILDHOOD ASSISTANT Sexual Orientation Straight 08/13/2023 4: 00 PM EARLY CHILDHOOD ASSISTANT Last Filed Vital Signs Vital Sign Reading Time Taken Comments Blood Pressure 167/86 04/03/2024 10:50 AM CDT Pulse 78 04/03/2024 10:50 AM CDT Temperature - - Respiratory Rate - - Oxygen Saturation - - Inhaled Oxygen Concentration - - Weight 56.3 kg (124 lb 0.1 oz) 08/26/2023 10:00 AM EARLY CHILDHOOD ASSISTANT Height 155.9 cm (5' 1.38) 08/26/2023 10:00 AM C Body Mass Index 23.14 08/26/2023 10:00 AM EARLY CHILDHOOD ASSISTANT Plan of Treatment Health Maintenance Due Date Last Done Comments Thyroid Stimulating Hormone (TSH) test for thyroid function 09/11/2023 09/11/2022, 03/19/2022, 03/02/2021, Additional history exists Office Visit for Blood Pressure Check / Re-check 07/04/2024 04/03/2024 Depression Screening (Annual PHQ-2) 08/12/2024 Fall Risk Screen (Annual) 08/12/2024 COVID-19 Vaccine (8 - Mixed Product risk season) 2024 05/07/2024, 05/06/2023, 07/12/2022, Additional history exists Creatinine Level (Kidney Function Test) 02/27/2025 02/28/2024, 08/01/2023, 04/02/2023, Additional history exists Potassium Level 02/27/2025 02/28/2024, 07/13, 04/02/2023, Additional history exists Sodium Level 02/27/2025 02/28/2024, 07/13, 04/02/2023, Additional history exists Influenza Vaccine (#1) 2025 , 05/06/2023, 05/08/2022, Additional history exists DTaP,Tdap,and Td Vaccines (4 - Td or Tdap) 02/06/2028 02/05/2018, 11/21/2007, 11/21/2007, Additional history exists Pneumococcal vaccine (50+ years) Completed 12/30/2014, 12/12/2009 Zoster Vaccines Completed 07/15/2019, 05/06/2019 Bone Density Scan (Osteoporosis Screen) Discontinued 03/15/2021 RSV vaccine - (32-36 weeks) or 60+ years Completed 07/15/2023 Hepatitis B Screening Discontinued 09/21/2024 Mammogram Discontinued 10/16/2024, 030 02/2025, 10/16/2023, Additional history exists HPV Vaccines Aged Out No longer eligi ble based on patient's age to complete this topic IPV Vaccines Aged Out No longer eligi ble based on patient's age to complete this topic Medical Devices Implanted Type Area Law Firm Administrator Device Identifier Shelf Expiration Date Model / Serial / Lot Knee Implant-10/12/19 21 Implanted:09/2020 (Quantity not on file) Knee Implant Left: Knee Knee Implant-5/23/2 023 Implanted:12/11 (Quantity not on file) Knee Implant Right: Knee Procedures Procedure Name Priority Date/Time Associated Diagnosis Comments IL ARTHCS ASP/INJ MJR JT W US Routine 12/24/2024 2:00 PM CDT Pain Hip Right from Last 3 Months Results * IL ARTHCS ASP/INJ MJR JT W US (12/24/2024 2:00 PM CDT) Narrative [facility] - 12/24/2024 2:00 PM CDT Rom Correa M.D. 12/24/2024 2:17 PM Hip site - Right greater trochanteric bursa: injection only Performed by: Rom Correa M.D. Authorized by: Dylon Guerrero M.D. Care team members present 1. Raymundo Alfredo 2. Mendel Upton M.D. 3. Rom Correa M.D. PROCEDURE DETAILS Procedure Location hip Hip site - Right greater trochanteric bursa Patient position: side-lying Procedure performed: injection only Needle gauge: 25 G, length: 2.5 in Ultrasound image guidance used to localize target, identify at risk structures, and dynamically used to direct therapy to the target. Image(s) acquired and saved. Pre-procedure image guidance used to localize target and identify at risk structures, and plan approach Probe: linear mid-frequency Procedural Medication The following medications were administered at the target site(s) Local anesthetic: 3 mL lidocaine 10 mg/mL (1 %) Corticosteroid: 40 mg methylPREDNISolone acetate 40 mg/mL CONSENT Consent obtained: written (Risks, benefits and alternatives were discussed and a written Informed Consent was obtained. Please see Informed Consent form for further details.) UNIVERSAL PROTOCOL All relevant documentation and testing were reviewed and available. All required blood products, implants, devices and or special equipment were made available as applicable. Pre-procedure verification was conducted and the correct site was marked if required. A fire risk and smoke assessment were done as applicable. The procedural time-out to verify correct patient, correct side/site, and procedure was conducted prior to performing the procedure and confirmed in a procedural pause. PRE-PROCEDURE DETAILS Procedure purpose: therapeutic Appropriate hand hygiene, gown, cap, mask, protective eyewear, sterile gloves, skin preparation, sterile drape, and strict aseptic technique were utilized as applicable for the procedure. Site preparation: chlorhexidine POST-PROCEDURE DETAILS Procedure completed successfully: yes Complications: no apparent complications Post-procedure instructions: avoid strenuous activity for 2 days Discharge instructions: ice area as needed for comfort Comments Consent obtained (written and verbal): The benefits, alternatives, and risks (including but not limited to bleeding, bruising, hematoma, reaction to medication, allergic reaction, infection, transient increase in pain, possible continued pain) were discussed with the patient and/or decision maker, as well as the roles of healthcare team members performing significant interventional tasks. Injection roof service technician/nurse was present for assistance during the procedure. Additional instructions: Avoid submersion of procedure site for 24 hours. Any medication remaining in a vial was discarded. Medication wasted detail (if any): Dylon Guerrero M.D. PROCEDURE/MINOR SURGIC AL ORDERABLES Final Result [facility] NA from Last 3 Months Additional Health Concerns Infection Onset Date Last Indicated Protective Environment 07/08/2023 Insurance [facility] Care Teams Durable Medical Equipment Technician Relationship Specialty Start Date End Date None Reported, Pcp PCP - General 06/19/24
--- OUTSIDE RECORDS SUMMARY | 2025-03-16 13:29 | XMS_ITS | Encounter Summary ---
Author Organization [facility] Address [address] [place] [address]. [place] [address] Care Team Providers Care Test Center Administrator Name Role Phone Ryland Kaur MD Primary Care Provider Pallavi Wyman MD Primary Care Provider [phone] Pallavi Wyman MD Primary Care Provider [phone] An Villafuerte INTERNATIONAL TRADE SPECIALIST HOTBED OPERATOR Unavailable An Villafuerte INTERNATIONAL TRADE SPECIALIST HOTBED OPERATOR Unavailable An Villafuerte INTERNATIONAL TRADE SPECIALIST HOTBED OPERATOR Unavailable An Villafuerte INTERNATIONAL TRADE SPECIALIST HOTBED OPERATOR Unavailable [phone] Encounter Details Date Type Department Care Team (Late st Contact Info) Description 06/20/2020 Records - [facility] OR [address] [place] [id number] Lynne Jackson, RAKEL Social History Tobacco Use Types Packs/Day Years Used Date Smoking Tobacco: Never Alcohol Use Standard Drinks/Week Comments Yes 0 (1 standard drink = 0.6 oz pur e alcohol) occ Comments No Sex and Gender Information Value Date Recorded Sex Assigned at Female 11/03/2020 11:18 PM CDT Legal Sex Female 3:06 AM DENTAL ASSISTING INSTRUCTOR Gender Identity Female 11/03/2020 11:18 PM CDT Sexual Orientation Straight 11/03/2020 11 :18 PM CDT documented as of this encounter Progress Notes * Lynne Jackson RN - 06/20/2020 11:10 AM CST Preliminary discharge plan. Final discharge plan according to [facility]: 06/17/20 0001 Discharge Planning Patient expects to be discharged to: Home Living Arrangements Alone Type of Residence Private residence Do you have stairs? Yes Number of stairs? 2 Do the stairs have railings? No Once in the house, are you able to live on one level? Yes Which level? Main Level What does your bathroom have? Walk-in shower Support Systems Children (Son, Musa Boothe) Pt/Rep Education / Interventions Discuss d/c AL ASSISTING INSTRUCTOR documented in this encounter Plan of Treatment Not on file documented as of this encounter Visit Diagnoses Not on filedocumented in this encounter Care Teams Test Center Administrator Relationship Specialty Start Date End Date Ryland Kaur MD XXX NO LONGERS SEEING PTS XXX [address] [place] [address] PCP - General 05/05/04 10/04/20 Pallavi Wyman MD XXX NO LONGERS SEEING PTS XXX [address] [place] [address] PCP - General Family Medicine 10/07/20 Pallavi Wyman MD XXX NO LONGERS SEEING PTS XXX [address] [place] [address] PCP - General 10/05/20 10/06/20 An Villafuerte APRN HOTBED OPERATOR [facility] [address] [place] [address] Assigned Surgical Provider 04/27/23 08/23/23 An Villafuerte APRN HOTBED OPERATOR [facility] [address] [place] [address] Assigned Neuroscience Provider 08/24/23 10/24/23 An Villafuerte APRN HOTBED OPERATOR [facility] [address] [place] [address] Assigned Surgical Provider 10/25/23 12/02/23 An Villafuerte APRN HOTBED OPERATOR [facility] [address] [place] [id number] Assigned Behavioral Health Provider 12/03/23 06/02/24 documented as of this encounter
--- OUTSIDE RECORDS SUMMARY | 2025-03-16 13:29 | XMS_ITS | Encounter Summary ---
Author Organization [facility] Address [address] [place] [address] Care Team Providers Care Conveyor Feeder Offbearer Name Role Phone Ryland Kaur MD Primary Care Provider Pallavi Wyman MD Primary Care Provider [phone] Pallavi Wyman MD Primary Care Provider [phone] An Villafuerte ACCOUNT INFORMATION CLERK DOBBY LOOM WEAVER Unavailable An Villafuerte ACCOUNT INFORMATION CLERK DOBBY LOOM WEAVER Unavailable An Villafuerte ACCOUNT INFORMATION CLERK DOBBY LOOM WEAVER Unavailable An Villafuerte ACCOUNT INFORMATION CLERK DOBBY LOOM WEAVER Unavailable Encounter Details Date Type Department Care Team (Late st Contact Info) Description 07/24/2007 MyC Medical Advice [facility] Ryland Kaur MD XXX NO LONGERS SEEING PTS XXX [address] [place], [place] [id number] HYPERLIPIDEMIA NEC/NOS (Primary Dx) Social History Tobacco Use Types Packs/Day Years Used Date Smoking Tobacco: Never Alcohol Use Standard Drinks/Week Comments Yes 0 (1 standard drink = 0.6 oz pur e alcohol) occ Comments No Sex and Gender Information Value Date Recorded Sex Assigned at Female 11/03/2020 11:18 PM CDT Legal Sex Female 3:06 AM ASSISTANT TEACHER PRIMARY Gender Identity Female 11/03/2020 11:18 PM CDT Sexual Orientation Straight 11/03/2020 11 :18 PM CDT documented as of this encounter Plan of Treatment Not on file documented as of this encounter Visit Diagnoses Diagnosis Other and unspecified hyperlipidemia- Primary documented in this encounter Care Teams Conveyor Feeder Offbearer Relationship Specialty Start Date End Date Ryland Kaur MD XXX NO LONGERS SEEING PTS XXX [address] [place] [address] PCP - General 05/05/04 10/04/20 Pallavi Wyman MD XXX NO LONGERS SEEING PTS XXX [address] [place] [address] PCP - General Family Medicine 10/07/20 Pallavi Wyman MD XXX NO LONGERS SEEING PTS XXX [address] [place] [address] PCP - General 10/05/20 10/06/20 An Villafuerte APRN DOBBY LOOM WEAVER [facility] [address] [place] [address] Assigned Surgical Provider 04/27/23 08/23/23 An Villafuerte APRN DOBBY LOOM WEAVER [facility] [address] [place] [address] Assigned Neuroscience Provider 08/24/23 10/24/23 An Villafuerte APRN DOBBY LOOM WEAVER [facility] [address] [place] [address] Assigned Surgical Provider 10/25/23 12/02/23 An Villafuerte APRN DOBBY LOOM WEAVER [facility] [address] [place] [address] Assigned Behavioral Health Provider 12/03/23 06/02/24 documented as of this encounter
--- OUTSIDE RECORDS SUMMARY | 2025-03-16 13:30 | XMS_ITS | Clinical Summary ---
Author Organization [facility] Address [address] [place] [address] Care Team Providers Care Pulmonology Physician Name Role Phone Darrion Nj MD Primary Care Provider [phone] Source Comments You are receiving this document as you are listed as the primary care provider,follow-up provider, or the patient has been referred to you for consultation.This is in compliance with the Medicare and[facility] EHR Incentive Program,which states Providers who transition their patient to another setting of careor provider of care or refers their patient to another provider of care shouldprovide summary care record for each transition of care or referral. [facility] Allergies Active Allergy Reactions Criticality Noted Date Comments Lisinopril Cough 12/28/2022 Metoprolol Gastrointestinal 12/28/2022 Nsaids Other, see comments 01/01/2023 Hx microscopic colitis Sulfasalazine Itching 12/28/2022 Medications atenolol (TENORMIN) 100 MG tablet Take 1 Tablet (100 mg) by mouth daily. Active tolterodine (DETROLLA) 4 MG 24 hour release capsule Take 1 Capsule (4 mg) by mouth daily. Active levothyroxine (SYNTHROID) 75 MCG tablet Take 1 Tablet (75 mcg) by mouth daily. Active hydroxychloroqui ne (AKA PLAQUENIL) 200 MG tabletIndication s:200 mg alternating every other day with 400 mg Take 1 Tablet (200 mg) by mouth daily. Indications: 200 mg alternating every other day with 400 mg Active CRANBERRY EXTRACT OR Take 500 mg by mouth daily. 6 Active folic acid 1 MG tablet Take 1 Tablet (1 mg) by mouth daily. 1 9 Active loratadine (CLARITIN) 10 MG tablet Take 1 Tablet (10 mg) by mouth. 7 Active melatonin 3 MG tablet Take 1 Tablet (3 mg) by mouth. 4 Active methotrexate 2.5 MG tablet Take 6 Tablets (15 mg) by mouth. Taking 8 tabs once weekly - Saturday 9 Active hydroCHLOROthiaz jorge (ORETIC) 12.5 MG tablet Take 1 Tablet (12.5 mg) by mouth daily. Active losartan (COZAAR) 50 MG tablet Take 1.5 Tablets (75 mg) by mouth daily. Active potassium chloride 10 MEQ controlled release capsule Take 1 Capsule (10 mEq) by mouth daily. Active fluticasone propionate (FLONASE) 50 MCG/ACT nasal solution Place 2 Sprays into both nostrils daily. Active sennosides-docus ate sodium (SENOKOT S) 8.6-50 MG per tablet Take 1 Tablet by mouth two times daily as needed for Constipation. If no BM by post-op day 3, add a laxative that is safe for you. 30 Tablet 3 Active aspirin EC 81 MG enteric coated tablet Take 1 Tablet (81 mg) by mouth daily. RESUME DAILY 81 MG ASPIRIN ON 02/16/2024. Do not start before February 15, 2023. 3 3 Active oxyCODONE HCl (ROXICODONE) 10 MG immediate release tablet Take 1/2 to 1 Tablet (5-10 mg) by mouth every 4 hours as needed. Take 1/2 tablet for pain rated 3-6, take 1 tablet for pain rated 7-10. 15 Tablet 01/02/2023 2:24 PM CDT 3 Active Active Problems Problem Noted Date Diagnosed Date Rheumatoid arthritis involvi ng multiple sites with positive rheumatoid factor 03/03/2019 Overview (03/03/2019): Go[facility] to [facility] Annemarie Parmar MD (Rheumatology) Immunizations Immunization Administration Dates Next Due Moderna Monovalent 12+ 12/13/2021,06/02/2021 Pfizer Monovalent 12+ Purple Top 07/12/2022,11/10,11/01/2020 Family History Medical History Relation Name Comments Glaucoma Father Macular Degeneration Negative Family History Retinal Detachment Negative Family History Relation Name Status Comments Father Social History Tobacco Use Types Packs/Day Years Used Date Smoking Tobacco: Never Smokeless Tobacco: Never Alcohol Use Standard Drinks/Week Comments No 0 (1 standard drink = 0.6 oz pur e alcohol) Comments Unknown Sex and Gender Information Value Date Recorded Sex Assigned at Not on file Legal Sex Female 3:40 AM CDT Gender Identity Not on file Sexual Orientation Not on file Last Filed Vital Signs Vital Sign Reading Time Taken Comments Blood Pressure 98/56 01/02/2023 11:13 AM CDT Pulse 81 01/02/2023 11:13 AM CDT Temperature 36.7 C (98 F) 01/02/2023 11:13 AM CDT Respiratory Rate 16 01/02/2023 11:13 AM CDT Oxygen Saturation 98% 01/02/2023 11:13 AM CDT Inhaled Oxygen Concentration - - Weight 57.2 kg (126 lb) 12/28/2022 2:30 PM CDT Height 154.9 cm (5' 1) 12/28/2022 2:30 PM CDT Body Mass Index 23.81 12/28/2022 2:30 PM CDT Plan of Treatment Health Maintenance Due Date Last Done Comments Medicare Annual Wellness Visit 1945 Dexa 2009 RSV Vaccine (1 - 1-dose 75+ series) 2019 Colonoscopy 06/24/2023 06/24/2013 COVID-19 Vaccine ( season) 2024 07/12/2022, 12/13/2021, 06/02/2021, Additional history exists Influenza Vaccine (#1) 2025 2, 06/02/2021, 05/05/2020, Additional history exists DTaP/Tdap/Td Vaccine (4 - Tdap) 02/06/2028 02/05/2018, 11/21/2007, 11/21/2007, Additional history exists Pneumococcal Vaccine 50+ Yrs Completed 12/30/2014, 12/12/2009 Zoster/Shingles Vaccine Completed 07/15/2019, 05/06 HepA Vaccine Aged Out No longer eligi ble based on patient's age to complete this topic HepB Vaccine Aged Out No longer eligi ble based on patient's age to complete this topic Hib Vaccine Aged Out No longer eligi ble based on patient's age to complete this topic MCV4 Vaccine Aged Out No longer eligi ble based on patient's age to complete this topic Meningococcal B Vaccine Aged Out No l onger eligible based on patient's age to complete this topic Medical Devices Implanted Type Area Senior Research Analyst Device Identifier Shelf Expiration Date Model / Serial / Lot Patella Attune Danish Dome 35mm - [id number] Implanted:Qty: 1 on 01/01/2023 by Sae Ruiz MD at [facility] DEVICE Right: KNEE DePuy Synthes - Joint Recon 11/10/2027 5 / NA / [id number] Adair Quickset - [id number] Implanted:Qty: 2 on 01/01/2023 by Sae Ruiz MD at [facility] DEVICE Right: KNEE DePuy Synthes - Joint Recon 06/11/2025 [id number] / NA / [id number] Attune Fem Cr Rt Sz5 Narw - [id number] Implanted:Qty: 1 on 01/01/2023 by Sae Ruiz MD at [facility] DEVICE Right: KNEE DePuy Synthes - Joint Recon 09/11/2032 5 / NA / [id number] Attune Tib [employer] Adair Sz4 - [id number] Implanted:Qty: 1 on 01/01/2023 by Sae Ruiz MD at [facility] DEVICE Right: KNEE DePuy Synthes - Joint Recon 11/09/2032 4 / NA / [id number] Insert Attune Cr Fb Sz5 5mm - [id number] Implanted:Qty: 1 on 01/01/2023 by Sae Ruiz MD at [facility] DEVICE Right: KNEE DePuy Synthes - Joint Recon 05/11/2027 5 / NA / [id number] Insurance MEDICARE [facility] MEDICARE ADVANTAGE Advance Directives * Full Code (Latest Code Status on File) Date Activated Date Inactivated Comments 01/01/2023 4:33 PM 01/02/2023 4:30 PM Care Teams Pulmonology Physician Relationship Specialty Start Date End Date Darrion Nj MD [address] [address] PCP - General Family Practice 01/15/14
[2025-03-16 13:32] VITALS: BP 162/82; PULSE 83; RESP 18; TEMP 36.6; O2SAT 96; BMI 22.5
--- NOTE | 2025-03-16 13:47 | CRLHL7_ITS ---
For Patients: As a result of the Century Cures Act, medical imaging exams and procedure reports are released immediately into your electronic medical record. You may view this report before your referring provider. If you have questions, please contact your health care provider. INDICATION: Fall. TECHNIQUE: CT of the head without contrast. Coronal and sagittal reformats are included. COMPARISON: None. FINDINGS: No acute intracranial hemorrhage. No mass effect or midline shift. No hydrocephalus or extra-axial collections. Scattered white matter hypoattenuation, typical for chronic microvascular ischemic change. Intracranial vascular calcifications. No acute osseous abnormalities. Mastoid air cells and paranasal sinuses are clear. Right parietal scalp hematoma measuring up to 10 millimeters in diameter. IMPRESSION: IMPRESSION: 1. No acute intracranial abnormalities. Please note that all CT scans at this facility use dose modulation, iterative reconstruction, and/or weight-based dosing when appropriate to reduce radiation dose to as low as reasonably achievable. Dictated by Nate Vasquez MD @ 03/16/2025 2:27:25 PM (Electronically Signed)
--- NOTE | 2025-03-16 13:48 | ED.HEATRA ---
HPI - Head Injury General Chief complaint: Head Injury/Pain Stated complaint: Fell, hit head Time Seen by Provider: 03/16/25 13:38 History of Present Illness HPI Narrative: This 79-year-old female comes in because of a head injury that occurred prior to arrival. She was trimming some trees and lost her balance falling backwards. She hit her head on some cement and did not have loss of consciousness. She was able to get up and ambulate. She does have some bleeding in the occipital region of her head. She states that she takes a baby aspirin daily. She does not report any other injury. Related Data Home Medications ?Medication ?Instructions ?Recorded ?Confirmed Flonase 03/16/25 Plaquenil 03/16/25 amlodipine 5 mg tablet 5 mg PO DAILY 03/16/25 03/16/25 aspirin 81 mg tablet,delayed 81 mg PO DAILY 03/16/25 03/16/25 release (Adult Aspirin Regimen) atenolol 100 mg tablet 100 mg PO DAILY 03/16/25 03/16/25 folic acid 1 mg tablet 1 mg PO DAILY 03/16/25 03/16/25 levothyroxine 75 mcg tablet 75 mcg PO DAILY 03/16/25 03/16/25 loratadine 03/16/25 losartan 100 mg tablet 100 mg PO DAILY 03/16/25 03/16/25 melatonin 03/16/25 methotrexate sodium 2.5 mg tablet 22.5 mg PO 03/16/25 potassium chloride 10 mEq 10 meq PO DAILY 03/16/25 03/16/25 tablet,extended release tolterodine 4 mg capsule,extended 4 mg PO DAILY 03/16/25 03/16/25 release 24 hr Allergies Allergy/AdvReac Type Severity Reaction Status Date / Time metoprolol Allergy Mild Verified 03/16/25 13:38 sulfasalazine Allergy Mild Verified 03/16/25 13:38 lisinopril AdvReac Mild Verified 03/16/25 13:38 Review of Systems Status of ROS: Reports: 10 or more systems reviewed and unremarkable except as noted in History and below Narrative: Constitutional: No fevers, no weight gain or loss. Eyes: No discharge. No vision changes. HENT: No congestion, no sore throat, no ear pain. Cardiovascular: No chest pain, no palpitations. Respiratory: No shortness of breath, no wheezes, no cough. Gastrointestinal: No abdominal pain, no vomiting, no diarrhea. Genitourinary: No dysuria, no hematuria. Musculoskeletal: Normal range of motion. Skin: No rashes, no pruritis. Neurological: No dizziness, weakness, sensory change, speech change. Endo/Heme/Allergies: No bruising or bleeding. No polydipsia. Pysch: no suicidality, no anxiety, no insomnia. All other systems reviewed and are negative. Exam Narrative: Exam Narrative: Constitutional: Well-developed, well-nourished, no acute distress. HEENT: Hematoma in the occipital region of her head. There is some skin injury that is appearing to be an abrasion without obvious sign of laceration. Neck: Normal range of motion. Nontender. Supple. Heart: Regular. No murmurs. Normal rate. Intact distal pulses. Lungs: Clear to auscultation. No chest discomfort. No wheezes, rhonchi, or rales. Abdomen: Normal bowel sounds. Nontender. No rebound tenderness. Genitalia: Deferred. Back: No midline tenderness. Normal range of motion. Extremities: Normal range of motion. No injury. Skin: Intact. No rash. Warm. No erythema or pallor. Neurologic: No altered sensation. No weakness. Alert and oriented. Psychiatric: No suicidality. No anxiety or depression. No insomnia. Nursing notes and vitals signs are reviewed. Const: Vital Signs, click to edit/add: Vital Signs - 24 hr 03/16/25 13:32 Temperature 97.8 F Pulse Rate [Pulse Oximeter] 83 Respiratory Rate 18 Blood Pressure [Ri ght Upper Arm] 162/82 H Pulse Oximetry 96 Oxygen Delivery Me thod Room Air Course Vital Signs Vital signs: Initial Vital Signs Temperature 97.8 F 03/16/25 13:32 Temperature Source Temporal Artery Scan 03/16/25 13:32 Pulse Rate 83 03/16/25 13:32 Respiratory Rate 18 03/16/25 13:32 Blood Pressure 162/82 H 03/16/25 13:32 Blood Pressure Mean 108 H 03/16/25 13:32 Blood Pressure Position Sitting 03/16/25 13:32 Pulse Oximetry 96 03/16/25 13:32 Oxygen Delivery Method Room Air 03/16/25 13:32 Vital Signs Temperature 97.8 F 03/16/25 13:32 Pulse Rate 83 03/16/25 13:32 Respiratory Rate 18 03/16/25 13:32 Blood Pressure 162/82 H 03/16/25 13:32 Pulse Oximetry 96 03/16/25 13:32 Oxygen Delivery Method Room Air 03/16/25 13:32 Temperature 97.8 F 03/16/25 13:32 Pulse Rate 83 03/16/25 13:32 Respiratory Rate 18 03/16/25 13:32 Blood Pressure 162/82 H 03/16/25 13:32 Pulse Oximetry 96 03/16/25 13:32 Oxygen Delivery Method Room Air 03/16/25 13:32 MDM - Head Injury MDM Narrative Medical decision making narrative: This patient comes in reporting head injury as described above. She does take a baby aspirin daily. She is not showing any sign of neurologic deficit and does not complain of a headache. She does have a small hematoma in the occipital region with overlying abrasion of the skin with some bleeding. There is no active bleeding currently and after cleansing this area of I do not find any laceration that needs repair. This patient is okay to be discharged home. I did give instructions regarding wound care. Imaging Data CT scan - head: Radiologist's impression: No acute intracranial abnormalities. Discharge Plan Discharge Clinical Impression: Closed head injury Patient Disposition: Home, Self-Care Condition: Stable Additional Instructions: Continue current plans. Use [id number] medicines as needed and directed. Follow up with MD return if worsening. Prescriptions: No Action amlodipine 5 mg tablet 5 mg PO DAILY aspirin [Adult Aspirin Regimen] 81 mg tablet,delayed release (DR/EC) 81 mg PO DAILY atenolol 100 mg tablet 100 mg PO DAILY folic acid 1 mg tablet 1 mg PO DAILY Flonase Plaquenil levothyroxine 75 mcg tablet 75 mcg PO DAILY losartan 100 mg tablet 100 mg PO DAILY loratadine melatonin tolterodine 4 mg capsule,extended release 24hr 4 mg PO DAILY potassium chloride 10 mEq tablet extended release 10 meq PO DAILY methotrexate sodium 2.5 mg tablet 22.5 mg PO Follow Up/Referrals: Pallavi Wyman MD [Referring, Family Practice] Stand Alone Forms: MyHealth Info Instructions
== END 2025-03-16 15:11 | disposition home or self-care (01) ==
PROVIDERS: Emergency Provider Emergency Medicine Emergency Medical Services; PCP Family Medicine
DX: S09.90XA Unspecified injury of head, initial encounter (principal); W19.XXXA Unspecified fall, initial encounter
CPT/HCPCS: 70450; 99283; 99284